=== PATIENT | female | born 1995 | race Caucasian/White ===

== ENCOUNTER 2017-07-16 11:45 | Emergency (ER) | payer OTHER ==
[~2017-07-16 11:45] MED LIST: CYCL-36 PO; IBUP-232 PO; IBUP800T23 PO; METH750T2 PO
[2017-07-16 11:59] VITALS: BP 114/78; PULSE 64; RESP 16; TEMP 98.2; O2SAT 100
[2017-07-16] MEDS ORDERED: VIVI380I IM (12:14)
--- NOTE | 2017-07-16 12:47 | PD ---
HPI Chief Complaint: Skin Problem Time Seen by Provider: 12:42 Travel History International Travel<30 days: No Contact w/Intl Traveler<30days: No Traveled to known affect area: No History of Present Illness HPI 22-year-old female presents to the emergency room for evaluation of itchy, red red, raised, circular area to her right lateral leg. States symptoms started 2 days ago. She applied nail bur[place] to the area to cure it. She has not taken anything for symptoms. No pain. No chronic medical conditions or daily medications. She is on Vivitrol once monthly. PFSH Past Medical History Hx Anticoagulant Therapy: No Blood Disorders: No Anxiety: Yes Cardiovascular Problems: No Chemotherapy: No Cerebrovascular Accident: No Diabetes: No Diminished Hearing: No Respiratory: No Immunizations Current: Yes Tetanus Vaccination: < 5 Years ?: Not : 0 Past Surgical History AICD: No Hysterectomy: No Joint Replacement: No Pacemaker: No Tonsillectomy: Yes Other Surgery: Yes Social History Alcohol Use: Yes (SOCIAL) Tobacco Use: Yes (1/2 PPD) Substance Use: No Allergies-Medications (Allergen,Severity, Reaction): Coded Allergies: No Known Allergies (Verified Adverse Reaction, Unknown, 07/16/17) Reported Meds & Prescriptions Reported Meds & Active Scripts Active Reported Vivitrol Inj (Naltrexone Inj) 380 Mg Inj 380 Mg IM Q28D Review of Systems Except as stated in HPI: all other systems reviewed are Neg Physical Exam Narrative GENERAL: Well-nourished, well-developed female no acute distress. Afebrile. Ambulatory. SKIN: Focused skin assessment warm/dry. There is a 3 cm in diameter circular, raised, patch to the right lateral leg with central clearing. HEAD: Normocephalic. EYES: No scleral icterus. No injection or drainage. NECK: Supple, trachea midline. No JVD or lymphadenopathy. CARDIOVASCULAR: Regular rate and rhythm without murmurs, gallops, or rubs. RESPIRATORY: Breath sounds equal bilaterally. No accessory muscle use. PSYCHIATRIC: No delusional thought processes. No hallucinations. Data Data Last Documented VS Vital Signs Date Time Temp Pulse Resp B/P (MAP) Pulse Ox O2 Delivery O2 Flow Rate FiO2 07/16/17 11:59 98.2 64 16 114/78 (90) 100 MDM Medical Decision Making Medical Screen Exam Complete: Yes Emergency Medical Condition: Yes Medical Record Reviewed: Yes Differential Diagnosis Athlete's foot, fungal infection, hives, viral exanthem Narrative Course 22-year-old female presents to the emergency room for evaluation of itchy rash to the right lateral leg for the past 2 days. History and physical exam are consistent with tinea corporis. Patient discharged with clotrimazole told to follow-up with primary care physician or return for worsening symptoms. She understands and agrees to plan. Diagnosis Primary Impression: Tinea corporis Referrals: Primary Care Physician Departure Forms: Tests/Procedures, Work Release Enter return to work date: Jul 16, 2017 Additional Instructions: Apply cream twice daily for up to 4 weeks. Follow-up with a primary care physician. Disposition: 01 DISCHARGE HOME Condition: Stable Florencia Morocho Jul 16, 2017 12:47
[2017-07-16] MEDS ORDERED: CLOT1CRE TOPICAL (12:48)
== END 2017-07-16 13:06 | disposition home or self-care (01) ==
LOC: NEPK 11:45
DX: B35.4 Tinea corporis (principal); Z72.0 Tobacco use
CPT/HCPCS: 99283